=== PATIENT | male | born 1960 | race Caucasian/White ===

== ENCOUNTER 2023-02-07 19:46 | Emergency (ER) | payer OTHER, SELFPAY ==
[2023-02-07 19:50] VITALS: BP 165/95; PULSE 93; RESP 15; TEMP 37.1; O2SAT 98; BMI 26.4
--- NOTE | 2023-02-07 19:59 | XRR_ITS ---
PROCEDURE INFORMATION: Exam: XR Right Hand Exam date and time: 02/07/2023 8:05 PM Age: 62 years old Clinical indication: Injury or trauma; Other: Cat bite; Hand; Right TECHNIQUE: Imaging protocol: Radiologic exam of the right hand. Views: 3 or more views. COMPARISON: No relevant prior studies available. FINDINGS: Bones/joints: No acute fracture. No dislocation. Normal bone mineralization. No joint effusion. Joint spaces are maintained. Soft tissues: No soft tissue swelling. No radiopaque foreign body. XR/XR hand RT min 3V* [id number] IMPRESSION: No acute fracture of the right hand. Followup imaging recommended in 7-14 days if clinical concern for fracture persists.
--- NOTE | 2023-02-07 20:04 | ED_ITS ---
HPI - Extremity Injury (Upper) General: Stated Complaint: Rt Hand Bit by Cat Time Seen by Provider: 02/07/23 19:59 History of Present Illness: 62-year-old male patient comes in today with injuries to the right hand. Patient reports this morning he was trying to break up his 2 cats from fighting and was bitten and scratched on the right hand and wrist area. Patient this evening had some increasing redness and swelling to the area and was concerned about infection. Patient appears nontoxic. Patient appears in mild pain. Obvious redness and swelling is noted to the dorsal hand and wrist area. Review of Systems General: Reports: 10 or more systems reviewed and unremarkable except in HPI and below Const: Denies: fever(s) Resp: Denies: dyspnea GI: Denies: abdominal pain : Denies: difficulty urinating Musc: Reports: extremity pain and extremity swelling Skin/Breast: Reports: erythema and new lesions Physical Exam Const: COMMON NORMALS: alert HENMT: COMMON NORMALS: normocephalic HEAD & SCALP: normocephalic Neck/C-Spine: GENERAL: Yes normal visual inspection Resp: COMMON NORMALS: normal respiratory effort Cardio: COMMON NORMALS: regular rate and regular rhythm RATE: regular rate RHYTHM: regular rhythm GI: COMMON NORMALS: Soft to palpation and non-tender PALPATION: Yes Soft to palpation Extremity: COMMON NORMALS: normal to inspection Neuro: SENSORIUM/ORIENTATION: Yes alert Skin: COMMON NORMALS: turgor normal GENERAL SKIN EXAM: turgor normal Course Vital Signs: Vital signs: Vital Signs Temperature 98.7 F 02/07/23 19:50 Pulse Rate 93 02/07/23 19:50 Respiratory Rate 15 02/07/23 19:50 Blood Pressure 165/95 02/07/23 19:50 Pulse Oximetry 98 02/07/23 19:50 Oxygen Delivery Me thod Room Air 02/07/23 19:50 MDM - Extremity Injury (Upper) Medical Decision Making 60-year-old male patient comes in today for complaints of injury to the right hand and wrist due to a cat bite and scratch. On exam patient has some mild swelling noted to the right wrist and hand with some erythema. Patient also appears to have some mild lymphangitis approximately 3 inches extending up the right vulvar forearm. Differential diagnosis includes not limited to wound infection, local reaction to animal bite, contact dermatitis, foreign body. X- ray of the wrist and hand noted no foreign body or bony injury. Wound was cleaned and covered with dry dressing. Patient will be covered for infection with 1 g of ceftriaxone in the emergency department. Patient's tetanus was updated. Patient be continued on Augmentin 875 twice a day for 10 days. XR interpretation done by ED provider, pending radiology final review Discharge Plan Discharge Patient Disposition: Home Clinical Impression: Cat bite of right hand Qualifiers: Encounter type: initial encounter Qualified Code(s): S61.451A - Open bite of right hand, initial encounter Condition: Stable Prescriptions: New amoxicillin-pot clavulanate 875-125 mg tablet 1 tab PO BID Qty: 20 0RF Discharge Orders: Discharge ED (Routine); Ordered 02/07/23 Ordered By: Velasquez Gerard Discharge Diet: Usual diet Discharge Activity: Increase activity as tolerated Patient Instructions: Animal Bite (ED) Activity Restrictions/Additional Instructions: Keep wounds clean and dry as much as possible. Wash wounds twice daily with mild soap and water and dry thoroughly. Use antibiotic ointment is not necessary but can be utilized. Follow-up in 3 days for recheck. Return to the emergency department for worsening symptoms such as increasing redness and swelling of the hand, fever greater than 100.4, nausea and vomiting. Coding Level of Care Code ED [employer] for Tano Pandey
[2023-02-07] MEDS: cefTRIAXone 1,000 MG in water for injection-sterile 2.1 ML 1 MG IM (20:24)
[2023-02-07] MEDS: tetanus-dipt-pertussis 0.5 mL SDV IM (20:25)
[2023-02-07 20:48] VITALS: PULSE 78; RESP 17; O2SAT 95
== END 2023-02-07 20:49 | disposition home or self-care (01) ==
PROVIDERS: Emergency Provider Nurse Practitioner Family
DX: S61.451A Open bite of right hand, initial encounter (principal); W55.01XA Bitten by cat, initial encounter; Z23 Encounter for immunization
CPT/HCPCS: 73130; 90471; 90715; 96372; 99284; J0696